=== PATIENT | female | born 1980 | race Caucasian/White ===

== ENCOUNTER 2016-08-03 17:06 | Outpatient (CLI) | payer BC ==
[~2016-08-03] VITALS: Ht 165.1 cm; Wt 68.0 kg
[~2016-08-03 17:06] MED LIST: FOLIC ACID0.4 MG PO; PRENATAL TABLE1 EAC3 PO; TRAMADOL HCL50 MG PO
[2016-08-03 17:36] VITALS: BP 112/59
[2016-08-03 18:27] VITALS: BP 107/65
[2016-08-03 18:47] LABS: ADD MIUA? YES; BILIRUBIN NEGATIVE; BLOOD SMALL; COLOR YELLOW ((YELLOW)); GLUCOSE (STRIP) NEGATIVE; KETONES NEGATIVE; LEUKOCYTES TRACE; NITRITE NEGATIVE; PROTEIN (STRIP) NEGATIVE; SPECIFIC GRAVITY 1.001 (1.000-1.030); UROBILINOGEN 0.2 MG/DL (0.2-1.0)
[2016-08-03 18:48] VITALS: BP 109/68
[2016-08-03 18:50] LABS: BACTERIA NONE SEEN; CASTS NONE SEEN /LPF; CRYSTALS NONE SEEN; EPITHELIAL CELLS RARE; MUCUS NONE SEEN; PATHOLOGICAL CAST NONE SEEN; RED BLOOD CELLS 0-5 /HPF (0-5); SMALL ROUND CELL NONE SEEN; UCUL ADDED? NO; WHITE BLOOD CELLS 0-5 /HPF (0-5); YEAST-LIKE CELL NONE SEEN
== END 2016-08-03 19:55 | disposition home or self-care (01) ==
LOC: LDRP-OP 17:06 → 2WEST 17:07 → LDRP-OP 09-12 02:24
PROVIDERS: Advanced Practice Midwife
DX: O47.1 False labor at or after 37 completed weeks of gestation (principal); O99.89 Other specified diseases and conditions complicating pregnancy, childbirth and the puerperium; Z3A.38 38 weeks gestation of pregnancy
CPT/HCPCS: 59025; 81003; G0378

== ENCOUNTER 2016-08-07 06:46 | Inpatient (IN) | payer BC ==
[~2016-08-07] VITALS: Ht 165.1 cm; Wt 69.5 kg
[2016-08-07] VITALS (22 sets, daily range): BP systolic 96–127; BP diastolic 53–79
[2016-08-07 09:23] LABS: EOSINOPHIL (%) 1.9 % (0-5); EOSINOPHIL COUNT 0.1 K/uL (0-0.3); HEMATOCRIT 31.9 % (36.0-46.0); LYMPHOCYTE COUNT 1.1 K/uL (1.0-2.8); MCH 29.1 PG (29.0-34.0); MCHC 32.6 G/DL (30.0-36.0); MCV 89.4 FL (83-99); MEAN PLAT.VOLUME 12.8 uM^3 (9.5-12.4); MONOCYTE (%) 5.6 % (3-12); MONOCYTE COUNT 0.3 K/uL (0-0.8); NEUTROPHIL (%) 71.5 % (45-76); NEUTROPHIL COUNT 3.7 K/uL (1.8-6.4); PLATELET COUNT 86 K/uL (156-360); RBC DIS.WIDTH-CV 14.7 % (11.8-14.6); RED BLOOD COUNT 3.57 M/uL (3.80-5.20); WHITE BLOOD COUNT 5.1 K/uL (4.1-10.2)
[2016-08-07 09:44] LABS: FIBRINOGEN 366 MG/DL (160-450); PTT 26.6 (25-32)
[2016-08-07 09:52] LABS: ALKALINE PHOSPHATASE 112 IU/L (3-129); ANION GAP 8 MEQ/L (2-14); CHLORIDE 107 MEQ/L (99-109); GFR ESTIMATE (CALCULATED) > 59 mL/min/; GLUCOSE 82 mg/dL (70-99); POTASSIUM 3.7 MEQ/L (3.7-5.4); SAMPLE HEMOLYSIS CHECK 0; SAMPLE ICTERIC CHECK 0; SAMPLE LIPEMIA CHECK 0; SODIUM 139 MEQ/L (136-147); TOTAL BILIRUBIN 0.3 MG/DL (0.0-1.0); UREA NITROGEN (BUN) 6 mg/dL (9-23)
[2016-08-08] VITALS (10 sets, daily range): BP systolic 88–115; BP diastolic 49–63
[2016-08-09 07:28] VITALS: BP 113/68
[2016-08-09 07:57] LABS: EOSINOPHIL (%) 2.5 % (0-5); EOSINOPHIL COUNT 0.2 K/uL (0-0.3); HEMATOCRIT 32.4 % (36.0-46.0); IMMATURE GRANULOCYTE (%) 0.2 % (0.0-0.7); LYMPHOCYTE COUNT 1.5 K/uL (1.0-2.8); MCH 29.5 PG (29.0-34.0); MCHC 32.4 G/DL (30.0-36.0); MONOCYTE (%) 5.4 % (3-12); MONOCYTE COUNT 0.5 K/uL (0-0.8); NEUTROPHIL COUNT 6.5 K/uL (1.8-6.4); RBC DIS.WIDTH-CV 14.7 % (11.8-14.6); RBC DIS.WIDTH-SD 48.8 % (39-53); RED BLOOD COUNT 3.56 M/uL (3.80-5.20)
[2016-08-09 08:16] LABS: WHITE BLOOD COUNT 8.7 K/uL (4.1-10.2)
[2016-08-09 08:30] LABS: PLAT.SUFFICIENCY DECREASED; PLATELET CLUMPS PRESENT; USER ID STC
[2016-08-09 15:30] VITALS: BP 107/55
[2016-08-09 23:13] VITALS: BP 126/60
[2016-08-10 08:05] VITALS: BP 124/78
[2016-08-10] MEDS ORDERED: IBUPROFEN800 MG PO (10:28)
[2016-08-10] MEDS ORDERED: CAMILA0.35 MG PO (10:29)
== END 2016-08-10 12:12 | disposition home or self-care (01) | DRG 775 ==
LOC: LDRP-OP 06:46 → 2WEST 06:47 → LDRP-OP 07:47 → 2WEST 08-08 01:06 → LDRP-OP 09-13 22:33
PROVIDERS: Advanced Practice Midwife; Obstetrics & Gynecology
DX: O24.429 Gestational diabetes mellitus in childbirth, unspecified control (principal); O99.12 Other diseases of the blood and blood-forming organs and certain disorders involving the immune mechanism complicating childbirth; D69.3 Immune thrombocytopenic purpura; O99.824 Streptococcus B carrier state complicating childbirth; Z3A.39 39 weeks gestation of pregnancy; Z37.0 Single live birth
CPT/HCPCS: 80053; 85025; 85384; 85610; 85730; C1755; G0378; J0595; J2405; J3370; J7120; Q0169